=== PATIENT | female | born 1965 | race Caucasian/White ===

== ENCOUNTER 2021-12-08 08:23 | Day surgery (SDC) | payer BC ==
[2021-12-08] MEDS ORDERED: fentaNYL 100 MCG/2 ML SDV ONE (08:53)
[2021-12-08] MEDS ORDERED: Midazolam 1 MG/ML 2 ML SDV ONE (08:53)
[2021-12-08] MEDS ORDERED: Propofol 200 MG/20 ML SDV ONE (08:54)
[2021-12-08] MEDS ORDERED: Sodium Chloride 0.9% 1,000 ML IV SCH (09:30)
== END 2021-12-08 11:53 | disposition home or self-care (01) ==
LOC: JP.SDS 08:23
PROVIDERS: ATTEND Surgery
DX: Z12.11 Encounter for screening for malignant neoplasm of colon (principal); Z88.5 Allergy status to narcotic agent
CPT/HCPCS: 45378; J2250; J2704; J3010; J7030